=== PATIENT | male | born 1975 | race Caucasian/White ===

== ENCOUNTER 2024-01-08 16:03 | Observation (INO) | payer OTHER, SELFPAY ==
--- NOTE | ~2024-01-08 | CT_ITS ---
EXAMINATION: CTA chest PE protocol DATE: 01/08/2024 21:07 INDICATION: Shortness of breath. TECHNIQUE: Computed tomography angiography (CTA) of the chest was performed with 100 mL Omnipaque-350 intravenous contrast timed to evaluate the pulmonary arteries. Coronal maximum intensity projection 3D-reconstructions were created by the technologist. Automated exposure control and iterative reconst ruction technique were employed. The dose-length product was 833.16 mGy-cm. COMPARISON: Chest 2 views 01/08/2024 FINDINGS: There is no pneumonia or pleural effusion. The heart size is normal. No pericardial effusio n. There is no pulmonary embolus. There is cortical thinning of right kidney. There is mild bilateral gynecomastia. There is severe cervical spondylosis and mild thoracic spondylosis. IMPRESSION: 1. No pulmonary embolus. Reviewed, dictated and finalized at location A. [facility] IMPRESSION: 1. No pulmonary embolus.
--- NOTE | ~2024-01-08 | US_ITS ---
EXAMINATION: US venous doppler LE RT DATE: 01/08/2024 19:06 INDICATION: Right lower limb pain. TECHNIQUE: Grayscale ultrasound images without and with compression and Doppler ultrasound images of the right lower extremity veins were obtained. COMPARISON: Ultrasound 01/17/2017 FINDINGS: The visualized portions of right common femoral vein, profunda (deep) femoral vein, femoral vein, per littlejohn veins, and greater saphenous vein outflow are patent. There is thrombus in right popliteal and posterior tibial veins. IMPRESSION: 1. Deep vein thrombosis involving right popliteal and posterior tibial veins. Reviewed, dictated and finalized at location A. [facility]
--- NOTE | ~2024-01-08 | XR_ITS ---
EXAMINATION: XR chest 2V DATE: 01/08/2024 18:49 INDICATION: Shortness of breath. TECHNIQUE: Frontal and lateral views of the chest were obtained on 3 radiographs. COMPARISON: None. FINDINGS: There is no pneumonia, pleural effusion, or pneumothorax. The heart size is normal. IMPRESSION: 1. No acute cardiopulmonary disease. Reviewed, dictated and finalized at location A. [facility]
[2024-01-08 16:10] VITALS: BP 143/90; PULSE 62; RESP 16; TEMP 36.6; O2SAT 98
--- NOTE | 2024-01-08 18:33 | ED_ITS ---
HPI - Extremity Problem General Chief complaint: Extremity Problem,Nontraumatic <Yenifer Fine PA-C - Last Filed: 01/08/24 19:35> Stated complaint: R/O right DVT (history DVT) <Yenifer Fnie PA-C - Last Filed: 01/08/24 19:35> Time Seen by Provider: 01/08/24 18:30 <Yenifer Fine PA-C - Last Filed: 01/08/24 19:35> Focused HPI: Patient is a 48 y/o male who presents the ED with report of right lower extremity pain. Patient reports having pain behind his R knee into his R calf over the past few days. States feels similar to previous blood clots in his legs. Hx of Factor 5 Leiden. On Warfarin 10mg daily, but states he has not had his INR checked in at least 6 months. also reports having mild shortness of breath. Denies chest pain. Denies recent cough fevers. GENERAL: Well-appearing, obese with BMI of 32.1, and in no acute distress. HEAD: Normocephalic, atraumatic. CHEST: Clear to auscultation. ?No respiratory distress. HEART: Regular rate and rhythm.? MSK: Mild TTP throughout R posterior calf/popliteal region. Sensation intact. NEURO: ?Alert and oriented x3. Patient screened in triage and initial orders placed.? ?Additional care and disposition to be based upon?diagnostic testing and treatment. <Yenifer Fine PA-C - Last Filed: 01/08/24 19:35> Focused HPI: Patient is a 48 y/o male who presents the ED with report of right lower extremity pain. Patient reports having pain behind his R knee into his R calf over the past few days. States feels similar to previous blood clots in his legs. Hx of Factor 5 Leiden. On Warfarin 10mg daily, but states he has not had his INR checked in at least 6 months. Also reports having mild shortness of breath. Denies chest pain. Denies recent cough fevers. GENERAL: Well-appearing, obese with BMI of 32.1, and in no acute distress. HEAD: Normocephalic, atraumatic. CHEST: Clear to auscultation. ?No respiratory distress. HEART: Regular rate and rhythm.? MSK: Mild TTP throughout R posterior calf/popliteal region. Sensation intact. NEURO: ?Alert and oriented x3. Patient screened in triage and initial orders placed.? ?Additional care and disposition to be based upon?diagnostic testing and treatment. <Magdiel Lopez MD - Last Filed: 01/08/24 22:37> Source: patient <Yenifer Fine PA-C - Last Filed: 01/08/24 19:35> Mode of arrival: ambulatory <Yenifer Fine PA-C - Last Filed: 01/08/24 19:35> Limitations: no limitations <DONNA Mojica Last Filed: 01/08/24 19:35> Related Data Allergies/Adverse reactions: Allergies Allergy/AdvReac Type Severity Reaction Status Date / Time acetaminophen Allergy Mild Numbness Verified 01/08/24 16:16 OXYCODONE HCL Allergy Mild Numbness Uncoded 01/08/24 16:16 <Yenifer Fine PA-C - Last Filed: 01/08/24 19:35> Review of Systems Review of Systems: All systems are reviewed and are negative unless stated otherwise in the HPI. <Magdiel Lopez MD - Last Filed: 01/08/24 22:37> Exam Narrative: General: Alert, awake, afebrile, in no acute distress. HEENT: PERRL, no rhinorrhea, no post nasal drip, oropharynx clear. Neck: Trachea midline, no JVD, no lymphadenopathy. Cardiovascular: Regular rate and rhythm, no murmurs, rubs or gallops, no peripheral edema. Respiratory: Clear to auscultation bilaterally, no tachypnea, no wheezing, no rhonchi, no rubs, no respiratory distress. Abdomen: Soft, nontender, nondistended, no rebound, no guarding, no peritoneal signs. Musculoskeletal: No joint swelling or deformity, normal muscle tone, no noticeable swelling to the right lower extremity, tenderness to palpation over the calf region extending down to the posterior ankle. Skin: No rashes or petechia, no signs of infection. Psychiatric: Alert and oriented, normal behavior and judgment for situation. Neurological: Alert and oriented to person, place, and time. Follows all commands. No focal deficits, speech is clear and fluent. <Magdiel Lopez MD - Last Filed: 01/08/24 22:37> Course Vital Signs Vital signs: Vital Signs Temperature 97.9 F 01/08/24 16:10 Pulse Rate 62 01/08/24 16:10 Respiratory Rate 16 01/08/24 16:10 Blood Pressure 143/90 H 01/08/24 16:10 Pulse Oximetry 98 01/08/24 16:10 Oxygen Delivery Room Air 01/08/24 16:10 Temperature 98 F 01/08/24 20:49 Pulse Rate 55 L 01/08/24 20:49 Respiratory Rate 16 01/08/24 20:49 Blood Pressure 145/95 H 01/08/24 20:49 Pulse Oximetry 98 01/08/24 20:49 Oxygen Delivery Room Air 01/08/24 16:10 <Yenifer Fine PA-C - Last Filed: 01/08/24 19:35> Vital Signs Temperature 97.9 F 01/08/24 16:10 Pulse Rate 62 01/08/24 16:10 Respiratory Rate 16 01/08/24 16:10 Blood Pressure 143/90 H 01/08/24 16:10 Pulse Oximetry 98 01/08/24 16:10 Oxygen Delivery Room Air 01/08/24 16:10 Temperature 98 F 01/08/24 20:49 Pulse Rate 55 L 01/08/24 20:49 Respiratory Rate 16 01/08/24 20:49 Blood Pressure 145/95 H 01/08/24 20:49 Pulse Oximetry 98 01/08/24 20:49 Oxygen Delivery Room Air 01/08/24 16:10 <Magdiel Lopez MD - Last Filed: 01/08/24 22:37> MDM - Extremity (Nontraumatic) MDM Narrative Medical decision making narrative: MSE by JANETH in triage. <Yenifer Fine PA-C - Last Filed: 01/08/24 19:35> MSE by JANETH in triage. The patient was evaluated by myself in the emergency department. History is obtained from patient who is an independent historian and physical exam was performed. External medical records were reviewed at this time. IV was established and pertinent tests were ordered. Laboratory results obtained revealing no acute process. INR 1.7. Imaging studies obtained included a right lower extremity venous duplex which was independently interpreted by me revealing a DVT involving the right popliteal and posterior tibial vein, which is pending final radiology interpre tation. CTA PE protocol was also obtained at this time and independently interpreted by me revealing no evidence of a pulmonary emboli. At this time patient was started on IV heparin for DVT given his subtherapeutic INR. Differential diagnosis considerations include DVT, musculoskeletal strain, superficial vein thrombosis. 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 I have evaluated and discussed social determinants of health with the patient that could potentially impact subsequent diagnosis and treatment plans. On repeat assessment of the patient, reevaluation revealed that the patient is doing well and is in no acute distress. Patient symptoms have remained stable since he arrived to our emergency department. Repeat vital signs were all reviewed and noted to be stable. Differential diagnosis and treatment plan were discussed with the patient at bedside. Patient agrees with discussion and after shared medical decision making agrees with admission. All questions were answered to the patient's satisfaction. Patient will be admitted to our general medical floor under the care of Dr. Vegas and case was discussed with her over the phone at [phone] and she accepted admission. Critical care time of 37 minutes, exclusive of separately performed procedures, necessary for treating or preventing eminent or life-threatening deterioration of patient's condition of right lower extremity DVT requiring IV heparin infusio n, focused on patient care provided personally by me and time spent during initial evaluation, physical examination, ordering and performing treatments and interventions, ordering and reviewing laboratory studies, ordering and reviewing radiographic studies, re-evaluation of the patient's condition, evaluation of the patient's response to treatment, and discussion of patient case with multiple consultants. <Magdiel Lopez MD - Last Filed: 01/08/24 22:37> Lab Data Result diagrams: 01/08/24 18:35 01/08/24 18:35 <Yenifer Fine PA-C - Last Filed: 01/08/24 19:35> Labs: Lab Results 01/08/24 Range/Units 18:35 WBC 8.1 (4.5-10.0) K/mm3 RBC 4.70 (4.6-6.20) M/mm3 Hgb 14.2 (14.0-18.0) g/dL Hct 42.2 (42.0-52.0) % MCV 89.8 (80-100) fl MCH 30.2 (26-34) pg MCHC 33.6 (32-36) g/dl RDW 12.4 (11.5-14.5) % Plt Count 222 (150-375) k/mm3 MPV 9.3 (7.4-10.4) fl Immature Gran % (Auto) 0.4 (0-0.5) % Neut % (Auto) 53.3 (45.5-73.1) % Lymph % (Auto) 35.9 (18.3-44.2) % [place] % (Auto) 6.4 (2.6-8.5) % Eos % (Auto) 3.1 (0-4.4) % Baso % (Auto) 0.9 (0.2-1.2) % Lymph # (Auto) 2.92 (0.9-3.2) K/mm3 [place] # (Auto) 0.5 (0.1-0.6) K/mm3 Eos # (Auto) 0.3 (0-0.3) K/mm3 Baso # (Auto) 0.1 (0.0-0.1) K/mm3 Abs Immat Gran (auto) 0.03 (0.00-0.031) K/mm3 Absolute Neuts (auto) 4.4 (1.3-6.7) K/mm3 Absolute Nucleated RBC 0.000 (0.0-0.012) K/mm3 Nucleated RBC % 0.0 (0.0-0.2) % PT 20.7 H (11.1-14.7) Seconds INR 1.7 APTT 30.3 (22.3-36.8) Seconds Sodium 139 (137-145) mmol/L Potassium 4.1 (3.4-5.0) mmol/L Chloride 106 (98-107) mmol/L Carbon Dioxide 26 (22-30) mmol/L Anion Gap 7 (4-12) mmol/L BUN 16 (9-20) mg/dL Creatinine 1.10 (0.7-1.3) mg/dL Estim Creat Clear Calc 110 ml/min Estimated GFR > 60 (59 - ) Glucose 94 (65-110) mg/dL Calcium 9.1 (8.4-10.2) mg/dL Total Bilirubin 0.5 (0.2-1.3) mg/dL AST 23 (17-59) U/L ALT 17 (6-50) U/L Alkaline Phosphatase 70 (38-126) U/L NT-Pro-B Natriuret Pep < 20 (19.9-100) pg/mL Total Protein 8.0 (6.3-8.2) g/dL Albumin 4.3 (3.5-5.1) g/dL <Yenifer Fine PA-C - Last Filed: 01/08/24 19:35> Lab Results 01/08/24 Range/Units 18:35 WBC 8.1 (4.5-10.0) K/mm3 RBC 4.70 (4.6-6.20) M/mm3 Hgb 14.2 (14.0-18.0) g/dL Hct 42.2 (42.0-52.0) % MCV 89.8 (80-100) fl MCH 30.2 (26-34) pg MCHC 33.6 (32-36) g/dl RDW 12.4 (11.5-14.5) % Plt Count 222 (150-375) k/mm3 MPV 9.3 (7.4-10.4) fl Immature Gran % (Auto) 0.4 (0-0.5) % Neut % (Auto) 53.3 (45.5-73.1) % Lymph % (Auto) 35.9 (18.3-44.2) % [place] % (Auto) 6.4 (2.6-8.5) % Eos % (Auto) 3.1 (0-4.4) % Baso % (Auto) 0.9 (0.2-1.2) % Lymph # (Auto) 2.92 (0.9-3.2) K/mm3 [place] # (Auto) 0.5 (0.1-0.6) K/mm3 Eos # (Auto) 0.3 (0-0.3) K/mm3 Baso # (Auto) 0.1 (0.0-0.1) K/mm3 Abs Immat Gran (auto) 0.03 (0.00-0.031) K/mm3 Absolute Neuts (auto) 4.4 (1.3-6.7) K/mm3 Absolute Nucleated RBC 0.000 (0.0-0.012) K/mm3 Nucleated RBC % 0.0 (0.0-0.2) % PT 20.7 H (11.1-14.7) Seconds INR 1.7 APTT 30.3 (22.3-36.8) Seconds Sodium 139 (137-145) mmol/L Potassium 4.1 (3.4-5.0) mmol/L Chloride 106 (98-107) mmol/L Carbon Dioxide 26 (22-30) mmol/L Anion Gap 7 (4-12) mmol/L BUN 16 (9-20) mg/dL Creatinine 1.10 (0.7-1.3) mg/dL Estim Creat Clear Calc 110 ml/min Estimated GFR > 60 (59 - ) Glucose 94 (65-110) mg/dL Calcium 9.1 (8.4-10.2) mg/dL Total Bilirubin 0.5 (0.2-1.3) mg/dL AST 23 (17-59) U/L ALT 17 (6-50) U/L Alkaline Phosphatase 70 (38-126) U/L NT-Pro-B Natriuret Pep < 20 (19.9-100) pg/mL Total Protein 8.0 (6.3-8.2) g/dL Albumin 4.3 (3.5-5.1) g/dL <Magdiel Lopez MD - Last Filed: 01/08/24 22:37> Critical Care Time Critical Care Time Total Critical Care Time: 37 (Please refer to [facility] for attestation.) <Magdiel Lopez MD - Last Filed: 01/08/24 22:37> Discharge Plan Discharge Clinical Impression: Deep vein thrombosis of lower extremity, Factor 5 Leiden mutation, heterozygous, DVT, recurrent, lower extremity, acute <Yenifer Fine PA-C - Last Filed: 01/08/24 19:35> Patient Disposition: Still a Patient <Yenifer Fine PA-C - Last Filed: 01/08/24 19:35> Condition: Stable <Yenifer Fine PA-C - Last Filed: 01/08/24 19:35> Follow-up/Referrals: Harms,Delio Choe M.D. [Primary Care Provider] - <Yenifer Fine PA-C - Last Filed: 01/08/24 19:35> Time of Disposition: 22:37 <Yenifer Fine PA-C - Last Filed: 01/08/24 19:35> 22:37 <Magdiel Lopez MD - Last Filed: 01/08/24 22:37>
[2024-01-08 18:43] LABS: Basophils Absolute Auto 0.1 K/mm3 (0.0-0.1); Basophils Percent Auto 0.9 % (0.2-1.2); Eosinophils Absolute Auto 0.3 K/mm3 (0-0.3); Eosinophils Percent Auto 3.1 % (0-4.4); Hematocrit 42.2 % (42.0-52.0); Hemoglobin 14.2 g/dL (14.0-18.0); Immature Granulocyte Absolute 0.03 K/mm3 (0.00-0.031); Immature Granulocyte Percent A 0.4 % (0-0.5); Lymphocytes Absolute Auto 2.92 K/mm3 (0.9-3.2); Lymphocytes Percent Auto 35.9 % (18.3-44.2); Mean Corpuscular HGB Conc 33.6 g/dl (32-36); Mean Corpuscular Hemoglobin 30.2 pg (26-34); Mean Corpuscular Volume 89.8 fl (80-100); Mean Platelet Volume 9.3 fl (7.4-10.4); Monocytes Absolute Auto 0.5 K/mm3 (0.1-0.6); Monocytes Percent Auto 6.4 % (2.6-8.5); Neutrophils Absolute Auto 4.4 K/mm3 (1.3-6.7); Neutrophils Percent Auto 53.3 % (45.5-73.1); Platelet Count Result 222 k/mm3 (150-375); Red Cell Distribution Width 12.4 % (11.5-14.5); White Blood Count 8.1 K/mm3 (4.5-10.0)
[2024-01-08 18:53] LABS: Alanine Aminotransferase 17 U/L (6-50); Albumin Level 4.3 g/dL (3.5-5.1); Alkaline Phosphatase 70 U/L (38-126); Anion Gap 7 mmol/L (4-12); Aspartate Amino Transferase 23 U/L (17-59); Bilirubin,Total 0.5 mg/dL (0.2-1.3); Blood Urea Nitrogen 16 mg/dL (9-20); Calcium 9.1 mg/dL (8.4-10.2); Carbon Dioxide 26 mmol/L (22-30); Chloride 106 mmol/L (98-107); Estimated CRCL calculation 110 ml/min; Estimated Glomerular Filt Rate > 60; Glucose 94 mg/dL (65-110); Potassium 4.1 mmol/L (3.4-5.0); Sodium 139 mmol/L (137-145)
[2024-01-08 18:58] LABS: INR 1.7; Partial Thromboplastin Time 30.3 Seconds (22.3-36.8); Prothrombin Time 20.7 Seconds (11.1-14.7)
[2024-01-08 19:02] LABS: NT Pro B Type Natriuretic Pept < 20 pg/mL (19.9-100)
[2024-01-08 20:49] VITALS: BP 145/95; PULSE 55; RESP 16; TEMP 36.6; O2SAT 98
--- NOTE | 2024-01-08 22:16 | P.HP_ITS ---
H&P: HPI History of Present Illness Date/Time: 01/08/24 22:16 Chief Complaint: right calf pain Narrative: This is a 48-year-old male with past medical history significant for Factor v Leiden deficiency on chronic anticoagulation, chronic DVT. Presents to the emergency room with right knee pain and calf pain for a few days. Patient was found to have acute DVT with subtherapeutic INR. Patient has been admitted for further evaluation management and treatment. EXAMINATION: XR chest 2V DATE: 01/08/2024 18:49 INDICATION: Shortness of breath. TECHNIQUE: Frontal and lateral views of the chest were obtained on 3 radiographs. COMPARISON: None. FINDINGS: There is no pneumonia, pleural effusion, or pneumothorax. The heart size is normal. IMPRESSION: 1. No acute cardiopulmonary disease. EXAMINATION: US venous doppler LE RT DATE: 01/08/2024 19:06 INDICATION: Right lower limb pain. TECHNIQUE: Grayscale ultrasound images without and with compression and Doppler ultrasound images of the right lower extremity veins were obtained. COMPARISON: Ultrasound 01/17/2017 FINDINGS: The visualized portions of right common femoral vein, profunda (deep) femoral vein, femoral vein, peroneal veins, and greater saphenous vein outflow are patent. There is thrombus in right popliteal and posterior tibial veins. IMPRESSION: 1. Deep vein thrombosis involving right popliteal and posterior tibial veins. EXAMINATION: CTA chest PE protocol DATE: 01/08/2024 21:07 INDICATION: Shortness of breath. TECHNIQUE: Computed tomography angiography (CTA) of the chest was performed with 100 mL Omnipaque-350 intravenous contrast timed to evaluate the pulmonary arteries. Coronal maximum intensity projection 3D-reconstructions were created by the technologist. Automated exposure control and iterative reconstruction technique were employed. The dose-length product was 833.16 mGy-cm. COMPARISON: Chest 2 views 01/08/2024 FINDINGS: There is no pneumonia or pleural effusion. The heart size is normal. No pericardial effusion. There is no pulmonary embolus. There is cortical thinning of right kidney. There is mild bilateral gynecomastia. There is severe cervical spondylosis and mild thoracic spondylosis. IMPRESSION: 1. No pulmonary embolus. Review of Systems Review of Systems: Right leg calf pain and knee pain for several days [facility] Family History Family History (Updated 01/08/24 @ 23:13 by Val Goodwin RN) Sibling History of blood clots Mother History of blood clots Grandparent History of blood clots Social History Social History Smoking status: Never smoker Substance use type: does not use Do You Feel Safe in your Home?: Yes Lack of Transportation: No Lack of Food: Never True Current Housing: I Have Housing Concerned About Future Housing: No Difficulty Paying Gas/Electric Bills: No Difficulty Paying for Meds: No Currently Unemployed: No Education: High School Diploma/GED Difficulty w/ Childcare or Family Care: No Spiritual care concerns: No Meds Home Medications and Allergies Home Medications Medication Instructions Recorded Confirmed Type ascorbic acid (vitamin C) 1,000 mg 1 g PO DAILY 01/08/24 01/08/24 History tablet warfarin 10 mg tablet 10 mg PO DAILY 01/08/24 01/08/24 History Allergies Allergy/AdvReac Type Severity Reaction Status Date / Time acetaminophen Allergy Mild Numbness Verified 01/08/24 23:28 OXYCODONE HCL Allergy Mild Numbness Uncoded 01/08/24 23:28 Vital Signs Vital Signs - 24 hr 01/08/24 16:10 01/08/24 20:49 Temperature 97.9 F 98 F Pulse Rate 62 55 L Respiratory Rate 16 16 Blood Pressure 143/90 H 145/95 H Pulse Oximetry 98 98 Oxygen Delivery Room Air Exam Narrative: sitting in a stretcher Const: General: comfortable, no acute distress, well developed, alert, awake and average body habitus Nutritional Appearance: average body habitus Orientation/consciousness: patient oriented x3 Other: well-appearing HENMT: Head: normal to inspection, normocephalic and atraumatic Ears: hearing grossly normal bilaterally Face/Nose/Sinus: normal facial exam Face and sinus: normal facial exam Eyes: General: appearance normal, both eyes and all related structures Pupils: Equal, round and reactive pupils present EOM: EOMs intact bilaterally Neck: Neck: full ROM, no lymphadenopathy and no JVD Thyroid: thyroid normal Lymphatic: no lymphadenopathy noted Resp: Effort & Inspection: normal respiratory effort and able to speak in complete sentences Auscultation: clear to auscultation bilaterally Cardio: Jugular venous distension: no JVD Rate: regular rate Rhythm: regular rhythm Heart sounds: S1 normal heart sound present and S2 normal heart sound present GI: GI Palp: Yes Soft to palpation and Yes No hepatosplenomegaly present : General: Yes deferred Skin: Rashes: no rashes Wounds: no wounds Neuro: General: patient oriented x3 and CN's II-XI intact bilaterally Cranial nerves: Yes CN's II-XII intact bilaterally and Yes Equal, round and reactive pupils present Cognition (Neuro): normal cognition Speech: normal speech Gait exam (Neuro): Unable to assess gait Motor exam (neuro): 5/5 motor strength present throughout Extrem: General: normal to inspection, full ROM, no joint enlargement and no pedal edema H&P: Results Labs Labs: Short CBC 01/08/24 Range/Units 18:35 WBC 8.1 (4.5-10.0) K/mm3 Hgb 14.2 (14.0-18.0) g/dL Hct 42.2 (42.0-52.0) % Plt Count 222 (150-375) k/mm3 BMP 01/08/24 18:35 Sodium 139 Potassium 4.1 Chloride 106 Carbon Dioxide 26 BUN 16 Creatinine 1.10 Glucose 94 Calcium 9.1 Liver Function 01/08/24 Range/Units 18:35 Total Bilirubin 0.5 (0.2-1.3) mg/dL AST 23 (17-59) U/L ALT 17 (6-50) U/L Alkaline Phosphatase 70 (38-126) U/L Albumin 4.3 (3.5-5.1) g/dL Assessment and Plan Assessment and plan (1) DVT, recurrent, lower extremity, acute: Code(s): I82.409 - Acute embolism and thrombosis of unspecified deep veins of unspecified lower extremity Status: Acute Assessment and Plan: placed in observation started on heparin (2) Factor 5 Leiden mutation, heterozygous: Code(s): D68.51 - Activated protein C resistance Status: Acute Assessment and Plan: resume Coumadin Hospitalist MIPS Advance Care Plan I have confirmed that the patient's Advanced Care Plan is present, code status is documented, or surrogate decision maker is listed in patient medical record.: Yes Medication Reconciliation I have utilized all available resources to obtain, update and review the patients current medications (includes all prescriptions, OTC, herbals, cannabis, and nutritional supplements).: Yes
[2024-01-08] MEDS: HEPARIN SOD/D5W 100 UNITS/ML 25,000 UNITS/250 ML BAG 15 UNITS IV CONT (22:37)
[2024-01-08 22:39] VITALS: BP 155/98; PULSE 67; RESP 23; TEMP 36.8; O2SAT 100
[2024-01-08 23:10] VITALS: BMI 32.8
--- NOTE | 2024-01-08 23:37 | ADMGEN ---
This patient, Stiven Santos, was admitted to [facility] Surg Room 315-02. Patient/family oriented to hospital policies and general routines including ID bracelet, bed and alarms, visiting hours, pain management, procedures, bathroom and other care routines, personal items, smoking policy, room service/diet, and visiting hours. Information on how to activate the Rapid Response Team has been discussed. Patient/Family are encouraged to report perceived risks to care and to ask questions if they do not understand what they are told or what they should do.
[2024-01-08 23:53] VITALS: BP 148/83; PULSE 54; RESP 18; TEMP 36.3; O2SAT 99
[2024-01-09 06:00] VITALS: BP 127/84; PULSE 56; RESP 16; TEMP 36.4; O2SAT 98
--- NOTE | 2024-01-09 06:23 | PC.NURSE ---
Lab notified of missed timed draw for PTT.
[2024-01-09 06:37] LABS: Basophils Absolute Auto 0.1 K/mm3 (0.0-0.1); Basophils Percent Auto 1.1 % (0.2-1.2); Eosinophils Absolute Auto 0.2 K/mm3 (0-0.3); Eosinophils Percent Auto 3.1 % (0-4.4); Hematocrit 44.6 % (42.0-52.0); Hemoglobin 14.6 g/dL (14.0-18.0); Immature Granulocyte Absolute 0.04 K/mm3 (0.00-0.031); Immature Granulocyte Percent A 0.6 % (0-0.5); Lymphocytes Absolute Auto 2.07 K/mm3 (0.9-3.2); Lymphocytes Percent Auto 29.4 % (18.3-44.2); Mean Corpuscular HGB Conc 32.7 g/dl (32-36); Mean Corpuscular Hemoglobin 29.9 pg (26-34); Mean Corpuscular Volume 91.4 fl (80-100); Mean Platelet Volume 9.5 fl (7.4-10.4); Monocytes Absolute Auto 0.5 K/mm3 (0.1-0.6); Monocytes Percent Auto 7.7 % (2.6-8.5); Neutrophils Absolute Auto 4.1 K/mm3 (1.3-6.7); Neutrophils Percent Auto 58.1 % (45.5-73.1); Platelet Count Result 214 k/mm3 (150-375); Red Blood Count 4.88 M/mm3 (4.6-6.20); Red Cell Distribution Width 12.4 % (11.5-14.5)
[2024-01-09 06:50] LABS: INR 1.7; Prothrombin Time 20.2 Seconds (11.1-14.7)
[2024-01-09 06:52] LABS: Partial Thromboplastin Time 63.5 Seconds (22.3-36.8)
[2024-01-09] MEDS: HEPARIN SODIUM 5,000 UNITS/ML VIAL 4000 UNITS IV PUSH (07:05)
[2024-01-09 08:00] VITALS: O2SAT 98
[2024-01-09] MEDS: ENOXAPARIN 100 MG/ML SYRINGE SUB-Q ×2 (12:43→20:04)
[2024-01-09] MEDS: ENOXAPARIN 30 MG/0.3 ML SYRINGE SUB-Q ×2 (12:43→20:04)
--- NOTE | 2024-01-09 12:55 | PM.IMPN ---
Progress Note: A&P Assessment and Plan (1) DVT, recurrent, lower extremity, acute: Code(s): I82.409 - Acute embolism and thrombosis of unspecified deep veins of unspecified lower extremity Status: Acute Assessment and Plan: Venous Duplex RLE; IMPRESSION: 1. Deep vein thrombosis involving right popliteal and posterior tibial veins. - Heparin infusion discontinued and started on Lovenox SQ. - Continue Warfarin with INR check daily. - Continue compression stockings. - Encouraged with meds and INR checks compliance at home. - INR therapeutic goal; 2-3. (2) Factor 5 Leiden mutation, heterozygous: Code(s): D68.51 - Activated protein C resistance Status: Acute Assessment and Plan: - Coumadin resumed. - Continue INR check. - Encouraged with meds and INR checks compliance. Plan Continue Lovenox injections and Coumadin for INR goal 2-3. Time Spent With Patient Time with patient: 15 - 25 minutes Subjective Date/time seen: 01/09/24 12:55 Patient states he feels alright and has no pain on his RLE or other distressful symptoms. States it was his fault for getting a DVT on his RLE as he hasn't followed up at the PCP clinic in 4 months for INR check though he's scheduled for monthly INR checks. States he'll get more serious with his INR check henceforth. Interval history: Patient calm on bedrest and looks to be in no acute distress. Review of Systems Review of Systems: Right leg calf pain and knee pain for several days All systems reviewed & are unremarkable except as noted in HPI and below Exam Narrative: General: Well appearing, no acute distress. HEENT: Atraumatic, PERRL, EOM, moist mucosa. Neck: Supple. Abdomen: Soft, non-tender, non-distended, +ve bowel sounds on all quadrants. Extremities: Compression stockings bilaterally, no edema or redness noted, no cyanosis, +ve pedal pulses. Skin: Warm and dry with no lesions. Neuro: Well oriented. No focal neuro deficits noted. Psych: Pleasant and co-operative. Objective Data Vital Signs Vital Signs: Vital Signs - 24 hr 01/08/24 16:10 01/08/24 20:49 01/08/24 22:39 Temperature 97.9 F 98 F 98.3 F Pulse Rate 62 55 L 67 Respiratory Rate 16 16 23 H Blood Pressure 143/90 H 145/95 H 155/98 H Pulse Oximetry 98 98 100 Oxygen Delivery Room Air 01/08/24 23:53 01/09/24 06:00 01/09/24 08:00 Temperature 97.4 F L 97.6 F Pulse Rate 54 L 56 L Respiratory Rate 18 16 Blood Pressure 148/83 H 127/84 Pulse Oximetry 99 98 98 Oxygen Delivery Room Air Intake/Output Intake/Output: Intake & Output 01/06/24 01/07/24 01/08/24 01/09/24 23:59 23:59 23:59 23:59 Intake Total 640.3 Balance 640.3 Meds/Results Medications: Active Medications Generic Name Dose Route Start Last Admin Trade Name Freq PRN Reason Stop Dose Admin Enoxaparin Sodium 100 mg 01/09/24 11:30 01/09/24 12:43 Enoxaparin 100 Mg/Ml Syringe SUB-Q 100 mg Q12HR [facility] Administration Enoxaparin Sodium 30 mg 01/09/24 11:30 01/09/24 12:43 Enoxaparin 30 Mg/0.3 Ml Syringe SUB-Q 30 mg Q12HR SHANTA Administration Heparin Sodium (Porcine) 8,500 units 01/08/24 22:21 Heparin Sodium 5,000 Units/Ml Vial IV PUSH PRN PRN aPTT less than 55 seconds Heparin Sodium (Porcine) 4,000 units 01/08/24 22:21 01/09/24 07:05 Heparin Sodium 5,000 Units/Ml Vial IV PUSH 4,000 units PRN PRN Administration aPTT 55 - 70 seconds Heparin Sodium/Dextrose 25,000 units in 250 mls @ 0 mls/hr 01/08/24 22:25 01/09/24 11:24 Heparin Sodium/D5w 100 Units/Ml IV CONT 0 units/hr .Q0M [facility] 0 mls/hr Titration Protocol Warfarin Sodium 10 mg 01/09/24 17:00 Warfarin (*Pbkc) 10 Mg Tablet PO DAILY@1700 [facility] Radiology Results: ITS Impressions Chest X-Ray 01/08/24 18:51 IMPRESSION: 1. No acute cardiopulmonary disease. Venous Doppler Study 01/08/24 19:11 IMPRESSION: 1. Deep vein thrombosis involving right popliteal and posterior tibial veins. Chest CTA 01/08/24 21:09 IMPRESSION: 1. No pulmonary embolus. Labs Labs: Laboratory Results - last 24 hr 01/08/24 01/09/24 18:35 05:55 WBC 8.1 7.0 RBC 4.70 4.88 Hgb 14.2 14.6 Hct 42.2 44.6 MCV 89.8 91.4 MCH 30.2 29.9 MCHC 33.6 32.7 RDW 12.4 12.4 Plt Count 222 214 MPV 9.3 9.5 Immature Gran % (Auto) 0.4 0.6 H Neut % (Auto) 53.3 58.1 Lymph % (Auto) 35.9 29.4 [place] % (Auto) 6.4 7.7 Eos % (Auto) 3.1 3.1 Baso % (Auto) 0.9 1.1 Lymph # (Auto) 2.92 2.07 [place] # (Auto) 0.5 0.5 Eos # (Auto) 0.3 0.2 Baso # (Auto) 0.1 0.1 Abs Immat Gran (auto) 0.03 0.04 H Absolute Neuts (auto) 4.4 4.1 Absolute Nucleated RBC 0.000 0.000 Nucleated RBC % 0.0 0.0 PT 20.7 H 20.2 H INR 1.7 1.7 APTT 30.3 63.5 H Sodium 139 Potassium 4.1 Chloride 106 Carbon Dioxide 26 Anion Gap 7 BUN 16 Creatinine 1.10 Estim Creat Clear Calc 110 Estimated GFR > 60 Glucose 94 Calcium 9.1 Total Bilirubin 0.5 AST 23 ALT 17 Alkaline Phosphatase 70 NT-Pro-B Natriuret Pep < 20 Total Protein 8.0 Albumin 4.3 Hospitalist MIPS Advance Care Plan I have confirmed that the patient's Advanced Care Plan is present, code status is documented, or surrogate decision maker is listed in patient medical record.: Yes Medication Reconciliation I have utilized all available resources to obtain, update and review the patients current medications (includes all prescriptions, OTC, herbals, cannabis, and nutritional supplements).: Yes
[2024-01-09 14:00] VITALS: BP 121/73; PULSE 57; RESP 14; TEMP 36.7; O2SAT 99
[2024-01-09] MEDS: WARFARIN (*PBKC) 10 MG TABLET PO (16:14)
[2024-01-09 21:20] VITALS: BP 155/84; PULSE 62; RESP 18; TEMP 36.2; O2SAT 99
[2024-01-10 06:00] VITALS: BP 132/78; PULSE 65; RESP 16; TEMP 36.5; O2SAT 99
[2024-01-10 06:59] LABS: INR 1.4
[2024-01-10 08:00] VITALS: O2SAT 99
[2024-01-10] MEDS: ENOXAPARIN 30 MG/0.3 ML SYRINGE SUB-Q ×2 (08:24→21:21)
[2024-01-10] MEDS: ENOXAPARIN 100 MG/ML SYRINGE SUB-Q ×2 (08:24→21:20)
[2024-01-10 14:00] VITALS: BP 135/87; PULSE 63; RESP 20; TEMP 36.4; O2SAT 99
--- NOTE | 2024-01-10 14:18 | PM.IMPN ---
Progress Note: A&P Assessment and Plan (1) DVT, recurrent, lower extremity, acute: Code(s): I82.409 - Acute embolism and thrombosis of unspecified deep veins of unspecified lower extremity Status: Acute Assessment and Plan: Venous Duplex RLE; IMPRESSION: 1. Deep vein thrombosis involving right popliteal and posterior tibial veins. - Heparin infusion discontinued and started on Lovenox SQ. - Continue Warfarin with INR check daily. - INR; 1.7>>1.7>>1.4 - Continue compression stockings. - Encouraged with meds and INR checks compliance at home. - INR therapeutic goal; 2-3. (2) Factor 5 Leiden mutation, heterozygous: Code(s): D68.51 - Activated protein C resistance Status: Acute Assessment and Plan: - Coumadin resumed, dose slightly increased due to continued drop in INR. - Continue daily INR check. - Encouraged with meds and INR checks compliance. Plan Continue Lovenox injections and Coumadin for INR goal 2-3. Time Spent With Patient Time with patient: 15 - 25 minutes Subjective Date/time seen: 01/10/24 14:18 Review of Systems Review of Systems: Right leg calf pain and knee pain for several days All systems reviewed & are unremarkable except as noted in HPI and below Exam Narrative: General: Well appearing, no acute distress. HEENT: Atraumatic, PERRL, EOM, moist mucosa. Neck: Supple. Abdomen: Soft, non-tender, non-distended, +ve bowel sounds on all quadrants. Extremities: no edema or redness noted, no cyanosis, +ve pedal pulses. Skin: Warm and dry with no lesions. Neuro: Well oriented. No focal neuro deficits noted. Psych: Pleasant and co-operative. Objective Data Vital Signs Vital Signs: Vital Signs - 24 hr 01/09/24 21:20 01/09/24 20:00 01/10/24 06:00 Temperature 97.1 F L 97.7 F Pulse Rate 62 65 Respiratory Rate 18 16 Blood Pressure 155/84 H 132/78 Pulse Oximetry 99 99 Oxygen Delivery Room Air 01/10/24 08:00 Temperature Pulse Rate Respiratory Rate Blood Pressure Pulse Oximetry 99 Oxygen Delivery Room Air Intake/Output Intake/Output: Intake & Output 01/07/24 01/08/24 01/09/24 01/10/24 23:59 23:59 23:59 23:59 Intake Total 1117.3 1110 Balance 1117.3 1110 Meds/Results Medications: Active Medications Generic Name Dose Route Start Last Admin Trade Name Freq PRN Reason Stop Dose Admin Enoxaparin Sodium 100 mg 01/09/24 11:30 01/10/24 08:24 Enoxaparin 100 Mg/Ml Syringe SUB-Q 100 mg Q12HR SHANTA Administration Enoxaparin Sodium 30 mg 01/09/24 11:30 01/10/24 08:24 Enoxaparin 30 Mg/0.3 Ml Syringe SUB-Q 30 mg Q12HR [facility]ANTA Administration Heparin Sodium (Porcine) 8,500 units 01/08/24 22:21 Heparin Sodium 5,000 Units/Ml Vial IV PUSH PRN PRN aPTT less than 55 seconds Heparin Sodium (Porcine) 4,000 units 01/08/24 22:21 01/09/24 07:05 Heparin Sodium 5,000 Units/Ml Vial IV PUSH 4,000 units PRN PRN Administration aPTT 55 - 70 seconds Heparin Sodium/Dextrose 25,000 units in 250 mls @ 0 mls/hr 01/08/24 22:25 01/09/24 11:24 Heparin Sodium/D5w 100 Units/Ml IV CONT 0 units/hr .Q0M [facility] 0 mls/hr Titration Protocol Warfarin Sodium 10 mg 01/10/24 17:00 Warfarin (*Pbkc) 10 Mg Tablet PO DAILY@1700 [facility] Warfarin Sodium 5 mg 01/10/24 17:00 Warfarin (*Pbkc) 5 Mg Tablet PO DAILY@1700 [facility] Radiology Results: ITS Impressions Chest X-Ray 01/08/24 18:51 IMPRESSION: 1. No acute cardiopulmonary disease. Venous Doppler Study 01/08/24 19:11 IMPRESSION: 1. Deep vein thrombosis involving right popliteal and posterior tibial veins. Chest CTA 01/08/24 21:09 IMPRESSION: 1. No pulmonary embolus. Labs Labs: Laboratory Results - last 24 hr 01/10/24 06:33 PT 18.0 H INR 1.4 Quality VTE Prophylaxis VTE prophylaxis: mechanical ordered and pharmacologic ordered Hospitalist MIPS Advance Care Plan I have confirmed that the patient's Advanced Care Plan is present, code status is documented, or surrogate decision maker is listed in patient medical record.: Yes Medication Reconciliation I have utilized all available resources to obtain, update and review the patients current medications (includes all prescriptions, OTC, herbals, cannabis, and nutritional supplements).: Yes
[2024-01-10] MEDS: WARFARIN (*PBKC) 10 MG TABLET PO (16:31)
[2024-01-10] MEDS: WARFARIN (*PBKC) 2.5 MG TABLET PO (16:31)
[2024-01-10 21:57] VITALS: BP 150/85; PULSE 78; RESP 18; TEMP 36.1; O2SAT 99
[2024-01-11 06:00] VITALS: BP 129/83; PULSE 60; RESP 16; TEMP 36.1; O2SAT 99
[2024-01-11 08:00] VITALS: O2SAT 99
[2024-01-11 08:07] LABS: INR 1.4; Prothrombin Time 18.1 Seconds (11.1-14.7)
[2024-01-11] MEDS: ENOXAPARIN 30 MG/0.3 ML SYRINGE SUB-Q (08:16)
[2024-01-11] MEDS: ENOXAPARIN 100 MG/ML SYRINGE SUB-Q (08:16)
[2024-01-11 14:00] VITALS: BP 146/88; PULSE 58; RESP 18; TEMP 36.7; O2SAT 98
--- NOTE | 2024-01-11 14:05 | PM.DS ---
DS: Admitting Diagnosis Discharge Date 01/11/2024 Admitting Diagnosis Right Calf Pain DS: Discharge Diagnosis Discharge Diagnosis (1) DVT, recurrent, lower extremity, acute: Code(s): I82.409 - Acute embolism and thrombosis of unspecified deep veins of unspecified lower extremity Status: Acute Assessment and Plan: Venous Duplex RLE; IMPRESSION: 1. Deep vein thrombosis . - Initially on Heparin infusion that was discontinued and currently on Lovenox SQ bridging. - Continue Warfarin with INR check daily. - INR; 1.7>>1.7>>1.4>>1.4 - Patient to be discharged on Lovenox bridging 130 mg BID until INR > 2. - Warfarin dose increased from 10 mg QD>>12.5 mg QD. - Follow-up in AM at PCP for INR check and 01/15/24 for repeat INR check. - Continue compression stockings. - Encouraged with meds and INR checks compliance at home. - INR therapeutic goal; 2-3. (2) Factor 5 Leiden mutation, heterozygous: Code(s): D68.51 - Activated protein C resistance Status: Acute Assessment and Plan: - Coumadin resumed, dose slightly increased 10 mg QD>>12.5 mg QD due to continued drop in INR. - Continue daily INR check. - Close INR check with PCP. - Encouraged with meds and INR checks compliance. - No cardiopulmonary symptoms noted. Plan Patient to be discharged on Lovenox 130 mg BID until INR level 2-3. Follow-up with PCP in AM for INR check and 01/15/24 for repeat NR check. Patient's PCP contacted and informed of pt discharge on Lovenox and increased Coumadin dose. Patient's PCP office informed of need for close INR check, with pt informed as well. DS: Summary Hospital Course Reason for hospitalization: Right Calf Pain Hospital Course: Patient presented to the ER with reports of right calf and some right knee pain that he had been having for a couple of days. Patient admitted that he has missed his INR check appointments for the last 4 months and did not know his last INR. He was evaluated in the ER and venous duplex RLE was positive for DVT involving right popliteal and posterior tibial veins. Patient was initially started on Heparin IV but was later transitioned to Lovenox SQ weight based. He was continued on Warfarin with daily INR checks, with his INR trending down inpatient 1.7>>1.7>>1.4>>1.4. Patient wants to be discharged today for personal reasons and is being discharged on Lovenox SQ and continued on Warfarin until INR 2-3. Patient's PCP office has been informed of pt discharge on Lovenox and need for close INR check, including in AM. Patient with no acute cardiopulmonary symptoms inpatient, and no acute distress noted or reported prior to his discharge. Patient encouraged with limited activity until INR 2-3. Status at Discharge Functional status at discharge: independent ambulation Overall status at discharge: patient is progressing back to baseline Time Spent with Patient Time attestation: Total time spent providing and/or coordinating discharge services: Time spent: Greater than 30 minutes Exam Narrative: General: Well appearing, no acute distress. HEENT: Atraumatic, PERRL, EOM, moist mucosa. Neck: Supple. Abdomen: Soft, non-tender, non-distended, +ve bowel sounds on all quadrants. Extremities: no edema or redness noted, no cyanosis, +ve pedal pulses. Skin: Warm and dry with no lesions. Neuro: Well oriented. No focal neuro deficits noted. Psych: Pleasant and co-operative. DS: Data Data Completed and Pending Labs on day of discharge: Labs from last 24 hours 01/11/24 07:12 PT 18.1 H INR 1.4 Discharge Plan Discharge Attending physician on discharge: Batsheva Goyal Discharging Clinician: Norma Brown Anticipated Discharge Date/Time: 01/11/24 14:24 Patient Disposition: Home, Self-Care Activity: as tolerated Diet: as tolerated Patient Instructions: Antibiotic Form, Warfarin (By mouth), Pain Management (DC) Stand Alone Forms: General Discharge Information Follow-up/Referrals: Harms,Delio Choe M.D. [Primary Care Provider] - Other (Follow-up 01/12/24 for INR check and 01/15/24 for repeat INR check.) Discharge Medications: New enoxaparin [Lovenox] 100 mg/mL Syringe 100 mg subcut Q12HR Qty: 5 1RF enoxaparin 30 mg/0.3 mL Syringe 30 mg subcut Q12HR Qty: 5 1RF warfarin 2.5 mg tablet 2.5 mg PO DAILY Qty: 14 0RF warfarin 10 mg tablet 10 mg PO DAILY Qty: 14 0RF Continued ascorbic acid (vitamin C) 1,000 mg Tablet 1 g PO DAILY warfarin 10 mg tablet 10 mg PO DAILY Date of admission: 01/09/24 09:45 Primary Care Provider: Tung,Delio Choe Admitting Provider: Malcolm Vegas V. Attending physician on admission: Malcolm Vegas V. Condition: Stable Quality VTE Prophylaxis VTE prophylaxis: mechanical ordered and pharmacologic ordered Hospitalist MIPS Heart Failure (Exclusion) Patient has history of Heart Transplant or Left Ventricular Assistive Device?: No IF YES, STOP HERE Heart Failure (Qualifier) Patient has current or prior documentation of LVEF less than or equal to 40%, or mod/servere depressed LVSF?: No IF NO, STOP HERE
== END 2024-01-11 15:24 | disposition home or self-care (01) ==
LOC: ANHED 22:37 → ANH3MEDSUR 23:25
PROVIDERS: Nurse Practitioner Adult Health; Physician Assistant; Admitting Provider Internal Medicine; Emergency Provider Emergency Medicine; PCP Family Medicine; Visit Provider Family Medicine
DX: I82.431 Acute embolism and thrombosis of right popliteal vein (principal); I82.441 Acute embolism and thrombosis of right tibial vein; D68.51 Activated protein C resistance; R06.02 Shortness of breath; E66.9 Obesity, unspecified; Z68.32 Body mass index [BMI] 32.0-32.9, adult; Z79.01 Long term (current) use of anticoagulants
CPT/HCPCS: 36415; 71046; 71275; 80053; 83880; 85025; 85610; 85730; 93971; 96365; 96366; 96372; 99285; A9270; G0378; J1644; J1650; Q9967